=== PATIENT | male | born 1990 ===

== ENCOUNTER 2017-02-22 11:44 | Emergency (ER) | payer OTHER ==
[2017-02-22 11:44] VITALS: BMI 29.0
[2017-02-22 11:48] VITALS: BP 134/87; PULSE 75; RESP 18; TEMP 99.1; O2SAT 97
[2017-02-22] MEDS ORDERED: Tetanus/Diphtheria Toxoids 0.5 ml Syringe IM ONE ×2 (12:10→12:38)
[2017-02-22] MEDS ORDERED: Bacitracin 500 Units/gm Oint Foilpak UD TOP STA (12:10)
[2017-02-22] MEDS ORDERED: Bacitracin 500 Units/gm Oint Foilpak UD ONE (12:15)
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
--- NOTE | 2017-02-22 13:54 | RAD ---
PROCEDURE: Radiographs of the Right Shoulder HISTORY: injury Presenting with posttraumatic pain COMPARISON: No prior. FINDINGS: BONES: Normal. No fracture. JOINTS: Normal. Glenohumeral and acromioclavicular joints preserved. No osteoarthritis. SOFT TISSUES: Normal. OTHER FINDINGS: None. IMPRESSION: No acute findings related to/accounting for the clinical presentation.
--- NOTE | 2017-02-22 14:08 | RAD ---
PROCEDURE: Radiographs of the right elbow. HISTORY: Posttraumatic pain send report COMPARISON: No prior. FINDINGS: BONES: Normal. No fracture. JOINTS: Normal. No osteoarthritis. SOFT TISSUES: Normal. JOINT EFFUSION: None. OTHER FINDINGS: None. IMPRESSION: Unremarkable radiographs of the right elbow.
--- NOTE | 2017-02-22 15:11 | RAD ---
PROCEDURE: Right Knee Radiographs. HISTORY: injury COMPARISON: None. FINDINGS: BONES: Normal. No fracture. JOINTS: Normal. No osteoarthritis. JOINT EFFUSION: None. OTHER FINDINGS: None. IMPRESSION: Normal radiographs of the right knee.
== END 2017-02-22 13:43 | disposition home or self-care (01) ==
LOC: C.ER 11:44
DX: S80.211A Abrasion, right knee, initial encounter (principal); S50.311A Abrasion of right elbow, initial encounter; M25.511 Pain in right shoulder; V13.4XXA Pedal cycle driver injured in collision with car, pick-up truck or van in traffic accident, initial encounter; Y93.55 Activity, bike riding; Y92.410 Unspecified street and highway as the place of occurrence of the external cause